=== PATIENT | female | born 1970 | race Caucasian/White ===

== ENCOUNTER 2020-08-05 13:48 | Outpatient (REF) | payer OTHER, SELFPAY ==
--- NOTE | 2020-08-05 13:53 | XR_ITS ---
EXAMINATION: XR CHEST CLINICAL INFORMATION: COVID+ 07/14/2020. Persistent mild cough and mild shortness of breath. COMPARISON: None TECHNIQUE: 2 views of the chest were obtained. FINDINGS: The lungs are clear. There is no airspace consolidation or definite groundglass opacity. The costophrenic sulci are well-defined. There is no pneumothorax or pleural reaction. The heart is normal in size. The hilar and mediastinal contours and bony structures are unremarkable. XR/XR chest 2V IMPRESSION: Unremarkable examination.
== END 2020-08-05 13:49 | disposition home or self-care (01) ==
LOC: HO.XRAY 13:48
PROVIDERS: Visit Provider Internal Medicine
DX: U07.1 COVID-19 (principal); R05 Cough; R06.02 Shortness of breath
CPT/HCPCS: 71046

== ENCOUNTER 2021-01-21 16:17 | Outpatient (REF) | payer OTHER, SELFPAY ==
--- NOTE | ~2021-01-21 | MM_ITS ---
EXAMINATION: MM SCREENING DIGITAL BREAST TOMOSYNTHESIS, BILATERAL CLINICAL INFORMATION: Screening. Asymptomatic. The lifetime risk of breast cancer based on the Tyrer-Cuzick Model is 14%. COMPARISON: Mammography: 07/02/2015, 05/06/2013 TECHNIQUE: Digital breast tomosynthesis is performed in both the craniocaudal and mediolateral oblique views along with computer-aided detection (CAD). Synthesized 2D images are generated from the tomosynthesis. FINDINGS: There are scattered areas of fibroglandular density (ACR BI-RADS breast composition Category b). There are no significant masses, abnormal calcifications, or other abnormalities. Parenchymal pattern is similar to prior exams. The axilla and skin contours are unremarkable. No significant changes. MM/MM tomosynthesis screening BI IMPRESSION: No mammographic evidence of malignancy. ASSESSMENT: BI-RADS 1: Negative RECOMMENDATION: Routine annual mammography screening. This patient's information was entered into a reminder system with a target due date for their next mammogram.
== END 2021-01-21 16:18 | disposition home or self-care (01) ==
LOC: HO.MAMMO 16:17
PROVIDERS: Visit Provider Internal Medicine
DX: Z12.31 Encounter for screening mammogram for malignant neoplasm of breast (principal)
CPT/HCPCS: 77063; 77067

== ENCOUNTER 2023-11-16 15:26 | Outpatient (REF) | payer OTHER, SELFPAY ==
--- NOTE | ~2023-11-16 | MM_ITS ---
EXAMINATION: MM SCREENING DIGITAL BREAST TOMOSYNTHESIS, BILATERAL CLINICAL INFORMATION: Screening. Asymptomatic. COMPARISON: Mammography: This study is compared with prior exams dating back to 2015. TECHNIQUE: Digital breast tomosynthesis is performed in both the craniocaudal and mediolateral oblique views along with computer-aided detection (CAD). Synthesized 2D images are generated from the tomosynthesis. FINDINGS: There are scattered areas of fibroglandular density (ACR BI-RADS breast composition Category b). There are no significant masses, abnormal calcifications, or other abnormalities. MM/MM tomosynthesis screening BI IMPRESSION: No mammographic evidence of malignancy. ASSESSMENT: BI-RADS BI-RADS 1 - Negative RECOMMENDATION: Routine annual mammography screening. 1 year F/U This examination should not preclude the clinical evaluation of a suspicious palpable abnormality. This patient's information was entered into a reminder system with a target due date for their next mammogram.
== END 2023-11-16 15:27 | disposition home or self-care (01) ==
LOC: HO.MAMMO 15:26
PROVIDERS: PCP Internal Medicine; Visit Provider Internal Medicine
DX: Z12.31 Encounter for screening mammogram for malignant neoplasm of breast (principal)
CPT/HCPCS: 77063; 77067

== ENCOUNTER → 2023-11-16 15:45 | Outpatient (BNV) | payer OTHER, SELFPAY | PROVIDERS: PCP Internal Medicine; Visit Provider Radiology Diagnostic Radiology | DX: Z12.31 Encounter for screening mammogram for malignant neoplasm of breast (principal) | CPT/HCPCS: 77063; 77067 ==

== ENCOUNTER 2024-11-28 15:40 | Outpatient (REF) | payer OTHER, SELFPAY ==
--- OUTSIDE RECORDS SUMMARY | 2024-11-28 17:49 | XMS_ITS | Clinical Summary ---
Author Organization [facility] [address] [place] [address] [address], [place] Phone Care Team Providers Care Hose Inspector And Patcher Name Role Phone Ekta Lynn MD Primary Care Provider [phone] Allergies No known active allergies Medications Bacillus coagulans-inul in 1 billion-250 cell-mg capsule Take 250 mg by mouth daily. Active buPROPion SR (WELLBUTRIN SR) 100 mg 12 hr tablet Take 1 tablet (100 mg total) by mouth 2 (two) times a day. Do not crush, chew, or split. 180 each 5 Active diclofenac (VOLTAREN) 75 mg EC tablet Take 1 tablet (75 mg total) by mouth 2 (two) times a day with meals. Do not crush, chew, or split. 180 tablet 5 Active atorvastatin (LIPITOR) 10 mg tablet Take 1 tablet (10 mg total) by mouth at bedtime. 30 tablet 5 Active levothyroxine (SYNTHROID, LEVOTHROID) 137 mcg tablet Take 1 tablet (137 mcg total) by mouth 1 (one) time each day before breakfast. 30 tablet 5 Active atorvastatin (LIPITOR) 10 mg tablet Take 1 tablet (10 mg total) by mouth at bedtime. 4 025 Discontinued(Re order) buPROPion SR (WELLBUTRIN SR) 200 mg 12 hr tablet Take 1 tablet (200 mg total) by mouth 2 (two) times a day. 4 025 Discontinued levothyroxine (SYNTHROID, LEVOTHROID) 137 mcg tablet Take 1 tablet (137 mcg total) by mouth 1 (one) time each day before breakfast. 1 025 Discontinued(Re order) ibuprofen (ADVIL,MOTRIN) 200 mg tablet Take 1 tablet (200 mg total) by mouth every 6 hours as needed. 025 Discontinued(Th erapy completed) diclofenac (VOLTAREN) 75 mg EC tablet Take 1 tablet (75 mg total) by mouth 2 (two) times a day for 14 days. 28 each 5 025 diclofenac (VOLTAREN) 75 mg EC tablet Take 1 tablet (75 mg total) by mouth 2 (two) times a day. Do not crush, chew, or split. 025 Discontinued(Re order) Active Problems Problem Noted Date Diagnosed Date Family history of colon cancer 11/14/2024 Gallstones 08/26/2024 Overview (08/26/2024): ERCP with sphincterotomy Family history of ovarian cancer 06/12/2024 Overview (06/12/2024): Mother from ovarian ca, tested BRCA negative Migraine 09/02/2023 Overview (06/12/2024): Dr. Troncoso Lumbar disc disease 12/31/2021 COVID-19 07/20/2020 Overview (06/12/2024): [facility] lab, 07/14/2020, again 08/10 Irritable bowel syndrome 02/18/2019 Obesity (BMI 30.0-34.9) 01/18/2019 Hyperlipidemia 05/30/2017 History of dysplastic nevus 11/27/2008 Overview (06/12/2024): Dysplastic nevus 11/27 midback (mild atypia) Hypothyroidism 09/30/2008 Depressive disorder 09/30/2008 Resolved Problems Problem Noted Date Diagnosed Date Resolved Date Trochanteric bursitis of left hip 08/27/2021 08/26/2024 Femoroacetabular impingement of left hip 08/27/2021 08/26/2024 Encounters Date Type Department Care Team Description 11/14/2024 4:30 PM EDT Office Visit Adult Medicine [address] [phone] Jacy Lay PA Mixed hyperlipidemia (Primary Dx); Refused influenza vaccine; Refused pneumococcal vaccine; Hypothyroidism, unspecified type; Obesity (BMI 30.0-34.9); Depressive disorder; Family history of ovarian cancer; Family history of colon cancer from Last 3 Months Immunizations Name Administration Dates Next Due Influenza Quadrivalent, 0.5m l, preservative free (Fluarix; FluLaval; Fluzone) ages 6mo and older (Afluria) 3yo and older 06/27/2023,06/02/2022,06/02/2021,2019,05/30/2019,06/15/2018 [employer] (ages 12 & older) AJITH S-CoV-2 COVID-19, mRNA, LNP-S, alex-sucrose, preservative free 09/01/2021 Pfizer Covid-19 Bivalent, Or iginal + Ba.1 (Non-US Trademark [employer] Bivalent) 09/01/2021 Pfizer SARS-CoV-2 COVID-19, mRNA, LNP-S, preservative free 12/09/2020,11/18/2020 Tdap Tetanus diptheria acell ular pertussis (Boostrix; Adacel) 7yo and older 02/14/2022 Surgical History Surgery Date Site/Laterality Comments WISDOM TOOTH EXTRACTION WRIST SURGERY 08/2013 Right ORIF; [facility]; at [facility] OTHER SURGICAL HISTORY 01/23/[address] sinclair removal of cbd stones Medical History Medical History Date Comments Hypothyroidism 09/30/2008 Depressive disorder 09/30/2008 Hyperlipidemia 05/30/2017 History of dysplastic nevus 11/27/2008 Dysp lastic nevus 11/27 midback (mild atypia) Irritable bowel syndrome 02/18/2019 Lumbar disc disease 12/31/2021 Family History Medical History Relation Name Comments No Known Problems Father Dementia Maternal Grandfather Osteoporosis Maternal Grandmother hyperth yroid Ovarian cancer Mother osteopenia Colon cancer Paternal Grandfather at 67 Breast cancer Paternal Grandmother Asthma Son 1 Other: Psoriatic Arthritis Son 2 Relation Name Status Comments Father Alive Maternal Grandfather Maternal Grandmother (Age 85) Mother Alive Paternal Grandfather (Age 67) Paternal Grandmother (Age 84) Son 1 Alive Son 2 Alive Social History Tobacco Use Types Packs/Day Years Used Date Smoking Tobacco: Never Smokeless Tobacco: Never Tobacco Cessation:Counseling Given: Not Answered Alcohol Use Standard Drinks/Week Comments Yes 0 (1 standard drink = 0.6 oz pur e alcohol) Housing Instability Answer Date Recorde d Are you worried that in the next 2 months you may not have stable housing? No 10/30/2024 Food Access & Nutrition Answer Date Rec orded Do you have access to a vari ety of food including fruits and vegetables? Yes 10/30/2024 Access to Healthcare Answer Date Record ed Within the last 3 months, ho w many times did you visit the emergency department for your medical care? 0 10/30/2024 Health Literacy Answer Date Recorded How often do you need to hav e someone help you when you read instructions, pamphlets, or other written material from your doctor or pharmacy? Never 10/30/2024 Caregiver: How often do you need to have someone help you when you read instructions, pamphlets, or other written material from your doctor or pharmacy? Not on file 10/30/2024 Financial Risk Answer Date Recorded How hard is it for you to pa y for the very basics like food, housing, medical care, and air conditioning / heating? Not very hard 10/30/2024 Transportation Answer Date Recorded Has the lack of transportati on kept you from meetings, work, or from getting things needed for daily living? No Has the lack of transportati on kept you from medical appointments or from getting medications? No 10/30/2024 Social Isolation Answer Date Recorded How often do you feel lonely or isolated from those around you? Sometimes 10/30/2024 Food Risk Answer Date Recorded Within the past 12 months we worried whether our food would run out before we got money to buy more. Never true 10/30/2024 Within the past 12 months th e food we bought just didn't last and we didn't have money to get more. Never true 10/30/2024 Dependent Care Answer Date Recorded Do you need help finding or paying for care for your loved ones. For example, childcare provider or elderly care for an older adult? No 10/30/2024 Education Answer Date Recorded Do you think completing more education or training, like finishing a GED, going to college, or learning a trade, would be helpful for you? N/A 10/30/2024 Employment and Income Answer Date Recor ded During the last four weeks, have you been actively looking for work? No 10/30/2024 Living Situation Answer Date Recorded What is your living situation? 0 10/30/2024 Comments Unknown Sex and Gender Information Value Date Recorded Sex Assigned at Not on file Legal Sex Female 2:40 AM EST Gender Identity Not on file Sexual Orientation Not on file Obstetrics History Last Filed Vital Signs Vital Sign Reading Time Taken Comments Blood Pressure 130/80 11/14/2024 4:26 PM EDT Pulse 100 11/14/2024 4:26 PM EDT Temperature 35.8 ??C (96.5 ??F) 11/14/2024 4:26 PM ED T Respiratory Rate 14 11/14/2024 4:26 PM EDT Oxygen Saturation - - Inhaled Oxygen Concentration - - Weight 95.7 kg (211 lb) 11/14/2024 4:26 PM EDT Height 170.2 cm (5' 7 ) 11/14/2024 4:26 PM EDT Body Mass Index 33.05 11/14/2024 4:26 PM EDT Plan of Treatment Health Maintenance Due Date Last Done Comments Hepatitis B Vaccines (1 of 3 - 19+ 3-dose series) 1990 Pneumococcal Vaccine: 50+ Years (1 of 1 - PCV) 2021 Zoster Vaccines (1 of 2) 2021 Colorectal Cancer Screening: Colonoscopy 07/30/2022 HIV Screening 07/30/2022 Breast Cancer Screening 01/21/2023 01/21/2021 Cervical Cancer Screening: Pap Smear 10/21/2023 10/20/2020 COVID-19 Vaccine ( season) 2024 09/01/2021, 12/09/2020, 11/18/2020 Influenza Vaccine (Season Ended) 2025 06/27/2023, 06/02/2022, 06/02/2021, Additional history exists Depression Screening 10/30/2025 10/30/2024 Social Influencers of Health Screening 10/30/2025 10/30/2024 Cholesterol Screening (Lipid Panel) 10/25/2028 10/26/2023 DTaP,Tdap,and Td Vaccines (2 - Td or Tdap) 02/15/2032 02/14/2022 Hepatitis C Screening Addressed 10/07/2022 Overri dden with the intention of not completing the topic HIB Vaccines Aged Out No longer eligi ble based on patient's age to complete this topic HPV Vaccines Aged Out No longer eligi ble based on patient's age to complete this topic Hepatitis A Vaccines Aged Out No long er eligible based on patient's age to complete this topic IPV Vaccines Aged Out No longer eligi ble based on patient's age to complete this topic MMR Vaccines Aged Out No longer eligi ble based on patient's age to complete this topic Meningococcal ACWY Vaccine Aged Out N o longer eligible based on patient's age to complete this topic Meningococcal B Vaccine Aged Out No l onger eligible based on patient's age to complete this topic Pneumococcal Vaccine: Pediatrics (0 to 5 Years) and At-Risk Patients (6 to 64 Years) Aged Out No longer eligible based on patient's age to complete this topic RSV Immunization Patients Under 20 months Aged Out No longer eligible based on patient's age to complete this topic Varicella Vaccines Aged Out No longer eligible based on patient's age to complete this topic Procedures Procedure Name Priority Date/Time Associated Diagnosis Comments PAP SMEAR Routine 10/20/2020 from Last 3 Months or Most Recently Relevant to Health Maintenance Results * Pap smear (10/20/2020) 10/20/2020 Narrative HISTORICAL TESTING LAB RESULTING AGENCY - 10/26/2020 8:01 AM EST [id number] THINPREP PAP, IMAGED: NEGATIVE FOR SQUAMOUS INTRAEPITHELIAL LESION AND MALIGNANCY . GABY HOANG(ASCP) (CASE ELECTRONICALLY SIGNED 10 24 2020) RESULT OF APTIMA HIGH RISK HPV ASSAY: HIGH RISK HPV: ??NEGATIVE (SEROTYPES 16,18,31,33,35,39,45,51,52,56,58,59,66,68) COMPLETED ON 2020-10-22 ADEQUACY: SATISFACTORY ENDOCERVICAL/TRANSFORMATION ZONE COMPONENT PRESENT. SOURCE: THINPREP PAP HPV ANY DX: ??REFLEX 16 AND 18, CERVICAL, IMAGED CLINICAL INFORMATION: HPV ANY DIAGNOSIS. PAP HX NEG, NO LMP RECORDED [Z12.4, Z01.419] [facility] CYTOLOGY ORDERABLES Fin lisa Result HISTORICAL TESTING LAB RESULTING AGENCY from Last 3 Months or Most Recently Relevant to Health Maintenance Insurance [facility] Care Teams Hose Inspector And Patcher Relationship Specialty Start Date End Date Ekta Lynn MD [address] [place] [address] PCP - General Internal Medicine 02/03/21
== END 2024-11-28 15:41 | disposition home or self-care (01) ==
LOC: HO.MAMMO 15:40
PROVIDERS: PCP Internal Medicine; Visit Provider Internal Medicine
DX: Z12.31 Encounter for screening mammogram for malignant neoplasm of breast (principal)
CPT/HCPCS: 77063; 77067

== ENCOUNTER → 2024-11-28 15:45 | Outpatient (BNV) | payer OTHER, SELFPAY | PROVIDERS: PCP Internal Medicine; Visit Provider Internal Medicine | DX: Z12.31 Encounter for screening mammogram for malignant neoplasm of breast (principal) | CPT/HCPCS: 77063; 77067 ==